=== PATIENT | female | born 1965 | race Caucasian/White ===

== ENCOUNTER 2021-05-08 10:02 | Outpatient (CLI) | payer MEDICAID, SELFPAY ==
[2021-05-08 10:26] VITALS: BP 148/84; PULSE 63; RESP 16; TEMP 36.6; O2SAT 97; BMI 33.3
[2021-05-08] MEDS: 0.9% Saline Lock 10 ML Syringe IV (10:31)
[2021-05-08 11:32] VITALS: BP 118/83; PULSE 51; RESP 16; TEMP 36.7; O2SAT 97
[2021-05-08 12:32] VITALS: BP 131/75; PULSE 55; RESP 16; TEMP 36.4; O2SAT 97
== END 2021-05-08 12:32 | disposition home or self-care (01) ==
LOC: MS3OUT 10:03 → MS3 10:03
PROVIDERS: Referring Provider Nurse Practitioner Adult Health; Visit Provider Nurse Practitioner Adult Health
DX: Z23 Encounter for immunization (principal); U07.1 COVID-19
CPT/HCPCS: J7050; M0245; Q0245; A4216